=== PATIENT | male | born 1960 | race Caucasian/White ===

== ENCOUNTER → 2017-09-24 | Outpatient (CLI) | payer BC ==
[2017-09-24 11:13] LABS: EOS # 0.1 (0.04-0.40); EOS % 1.9 % (0.0-4.0); HEMATOCRIT 46.2 % (42.0-52.0); HEMOGLOBIN 15.3 g/dL (13.5-18.0); LYMPH# 1.1 (1.50-4.00); MEAN CELL VOLUME 87 fl (78-100); MEAN CORPUSCULAR HEMOGLOBIN 29 pg (27-31); MEAN CORPUSCULAR HGB CONC 33 g/dL (33-37); MEAN PLATELET VOLUME 10.6 fl (7.4-10.4); MONO # 0.4 (0.20-0.80); NEU # 3.2 (1.40-6.50); PLATELET COUNT 206 K/mm3 (130-400); RED BLOOD COUNT 5.29 M/mm3 (4.20-5.60); RED CELL DISTRIBUTION WIDTH 13.8 % (11.5-14.5); WHITE BLOOD COUNT 4.8 K/mm3 (4.8-10.8)
[2017-09-24 11:22] LABS: ALBUMIN 3.9 g/dL (3.5-5.0); BUN/CREATININE RATIO 28.2 (6.0-26.0); CALCIUM 9.1 mg/dL (8.4-10.2); POTASSIUM 4.1 mmol/L (3.6-5.0); TOTAL BILIRUBIN 0.9 mg/dL (0.2-1.3); TOTAL PROTEIN 6.6 g/dL (6.3-8.2)
== END ==
LOC: LAB 10:56
PROVIDERS: Nurse Practitioner Family
DX: Z00.00 Encounter for general adult medical examination without abnormal findings (principal); R73.03 Prediabetes; I10 Essential (primary) hypertension; N40.0 Benign prostatic hyperplasia without lower urinary tract symptoms

== ENCOUNTER → 2018-05-11 | Outpatient (CLI) | payer BC | LOC: RAD 16:08 | DX: M47.896 Other spondylosis, lumbar region (principal) ==

== ENCOUNTER → 2018-09-13 | Outpatient (CLI) | payer BC ==
[2018-09-13 07:22] LABS: EOS # 0.1 (0.04-0.40); EOS % 1.8 % (0.0-4.0); HEMATOCRIT 47.5 % (42.0-52.0); MEAN CELL VOLUME 87 fl (78-100); MEAN CORPUSCULAR HEMOGLOBIN 29 pg (27-31); MEAN CORPUSCULAR HGB CONC 34 g/dL (33-37); MEAN PLATELET VOLUME 10.6 fl (7.4-10.4); MONO # 0.5 (0.20-0.80); NEU # 2.9 (1.40-6.50); PLATELET COUNT 205 K/mm3 (130-400); RED BLOOD COUNT 5.44 M/mm3 (4.20-5.60); RED CELL DISTRIBUTION WIDTH 13.7 % (11.5-14.5); WHITE BLOOD COUNT 4.5 K/mm3 (4.8-10.8)
[2018-09-13 07:36] LABS: ALBUMIN 4.2 g/dL (3.5-5.0); CALCIUM 9.4 mg/dL (8.4-10.2); TOTAL BILIRUBIN 0.6 mg/dL (0.2-1.3); TOTAL PROTEIN 6.8 g/dL (6.3-8.2)
== END ==
LOC: LAB 07:07
PROVIDERS: Physician Assistant
DX: Z00.00 Encounter for general adult medical examination without abnormal findings (principal); Z23 Encounter for immunization; M54.41 Lumbago with sciatica, right side; N40.1 Benign prostatic hyperplasia with lower urinary tract symptoms; R35.1 Nocturia; M25.551 Pain in right hip; I10 Essential (primary) hypertension; R73.03 Prediabetes

== ENCOUNTER → 2018-09-20 | Outpatient (CLI) | payer BC | LOC: RAD 07:44 | DX: M16.11 Unilateral primary osteoarthritis, right hip (principal); M24.151 Other articular cartilage disorders, right hip; M47.816 Spondylosis without myelopathy or radiculopathy, lumbar region; M48.07 Spinal stenosis, lumbosacral region; M51.27 Other intervertebral disc displacement, lumbosacral region ==

== ENCOUNTER 2018-12-08 08:30 | Outpatient (RCR) | payer BC | END 2018-12-08 09:00 | disposition still patient (30) | LOC: PT 08:30 | DX: M48.061 Spinal stenosis, lumbar region without neurogenic claudication (principal); M51.26 Other intervertebral disc displacement, lumbar region; M54.16 Radiculopathy, lumbar region; M79.604 Pain in right leg ==

== ENCOUNTER → 2019-06-27 | Outpatient (CLI) | payer BC ==
[2019-06-27 16:36] LABS: EOS # 0.1 (0.04-0.40); EOS % 1.9 % (0.0-4.0); HEMATOCRIT 46.9 % (42.0-52.0); HEMOGLOBIN 15.4 g/dL (13.5-18.0); LYMPH# 1.2 (1.50-4.00); MEAN CELL VOLUME 88 fl (78-100); MEAN CORPUSCULAR HEMOGLOBIN 29 pg (27-31); MEAN CORPUSCULAR HGB CONC 33 g/dL (33-37); MEAN PLATELET VOLUME 10.5 fl (7.4-10.4); MONO # 0.5 (0.20-0.80); NEU # 3.5 (1.40-6.50); PLATELET COUNT 222 K/mm3 (130-400); RED BLOOD COUNT 5.34 M/mm3 (4.20-5.60); RED CELL DISTRIBUTION WIDTH 13.6 % (11.5-14.5); WHITE BLOOD COUNT 5.3 K/mm3 (4.8-10.8)
[2019-06-27 17:19] LABS: POTASSIUM 4.3 mmol/L (3.5-5.1)
[2019-06-27 17:20] LABS: CALCIUM 9.2 mg/dL (8.3-10.5)
== END ==
LOC: RAD 13:29 → LAB 13:29
PROVIDERS: Physician Assistant
DX: M19.042 Primary osteoarthritis, left hand (principal); M25.775 Osteophyte, left foot; M20.40 Other hammer toe(s) (acquired), unspecified foot

== ENCOUNTER → 2020-10-11 | Outpatient (CLI) | payer BC ==
[2020-10-11 10:58] LABS: CALCIUM 9.3 mg/dL (8.3-10.5)
[2020-10-11 11:00] LABS: TOTAL PROTEIN 6.5 g/dL (6.2-8.1)
[2020-10-11 11:01] LABS: TOTAL BILIRUBIN 0.7 mg/dL (0.2-1.2)
[2020-10-11 12:22] LABS: POTASSIUM 4.2 mmol/L (3.5-5.1)
== END ==
LOC: LAB 09:39
PROVIDERS: Physician Assistant
DX: Z00.00 Encounter for general adult medical examination without abnormal findings (principal); Z12.5 Encounter for screening for malignant neoplasm of prostate; E78.5 Hyperlipidemia, unspecified; R73.03 Prediabetes

== ENCOUNTER → 2021-10-14 | Outpatient (CLI) | payer BC ==
[2021-10-14 09:05] LABS: BASO # 0.02 K/mm3 (0.02-0.10); EOS # 0.08 K/mm3 (0.04-0.40); EOS % 1.4 % (0.0-4.0); HEMATOCRIT 51.1 % (42.0-52.0); HEMOGLOBIN 16.5 g/dL (13.5-18.0); MEAN CELL VOLUME 90 fl (78-100); MEAN CORPUSCULAR HEMOGLOBIN 29 pg (27-31); MEAN CORPUSCULAR HGB CONC 32 g/dL (33-37); MEAN PLATELET VOLUME 10.2 fl (7.4-10.4); MONO # 0.47 K/mm3 (0.20-0.80); PLATELET COUNT 233 K/mm3 (130-400); RED CELL DISTRIBUTION WIDTH 13.2 % (11.5-14.5); WHITE BLOOD COUNT 5.7 K/mm3 (4.8-10.8)
[2021-10-14 09:19] LABS: ALBUMIN 4.2 g/dL (3.4-4.8); POTASSIUM 4.6 mmol/L (3.5-5.1)
[2021-10-14 09:20] LABS: CALCIUM 9.7 mg/dL (8.3-10.5)
[2021-10-14 09:21] LABS: TOTAL PROTEIN 6.9 g/dL (6.2-8.1)
[2021-10-14 09:23] LABS: TOTAL BILIRUBIN 0.4 mg/dL (0.2-1.2)
== END ==
LOC: LAB 08:54
PROVIDERS: Physician Assistant
DX: Z00.00 Encounter for general adult medical examination without abnormal findings (principal); Z12.5 Encounter for screening for malignant neoplasm of prostate; I10 Essential (primary) hypertension; E78.5 Hyperlipidemia, unspecified

== ENCOUNTER → 2022-03-29 | Day surgery (SDC) | payer BC | LOC: MSO 07:10 | DX: Z12.11 Encounter for screening for malignant neoplasm of colon (principal) | CPT/HCPCS: 00812; J2704; J7120 ==

== ENCOUNTER → 2024-03-08 | Outpatient (CLI) | payer MEDICARE, BC, OTHER ==
[2024-04-24 11:46] LABS: CALCIUM 9.4 mg/dL (8.3-10.5); TOTAL BILIRUBIN 0.7 mg/dL (0.2-1.2); TOTAL PROTEIN 6.4 g/dL (6.2-8.1)
== END ==
LOC: LAB 03-08 08:00
PROVIDERS: Physician Assistant
DX: R79.89 Other specified abnormal findings of blood chemistry (principal)